=== PATIENT | female | born 1995 | race Caucasian/White ===

== ENCOUNTER 2019-06-27 11:45 | Emergency (ER) | payer BC ==
[~2019-06-27] VITALS: Ht 160 cm; Wt 83.9 kg
[2019-06-27 12:04] VITALS: Ht 160 cm; Wt 83.9 kg
[2019-06-27 12:57] LABS: CALCIUM 8.7 mg/dL (8.5-10.1); CARBON DIOXIDE 22.1 mmol/L (21-32); CHLORIDE SERUM 102 mmol/L (98-107); CREATININE SERUM 0.4 mg/dL (0.6-1.0); GFR1 > 60 mL/min; GLUCOSE SERUM 83 mg/dL (74-106); POTASSIUM SERUM 3.2 mmol/L (3.5-5.1); SODIUM SERUM 137 mmol/L (136-145)
[2019-06-27 13:02] LABS: BASOPHIL % 0.3 % (0-2); PLATELET COUNT 169 x10^3mcL (130-400); RED CELL DISTRIBUTION WIDTH 13.7 % (11.5-14.5)
[2019-06-27 13:03] LABS: ALKALINE PHOSPHATASE 56 U/L (46-116); ALT/SGPT 23 U/L (14-59); AMYLASE 26 U/L (25-115); AST/SGOT 18 U/L (15-37); BILIRUBIN TOTAL 0.3 mg/dL (0.20-1.00); LIPASE 73 IU/L (73-393); TOTAL PROTEIN, SERUM 6.8 g/dL (6.4-8.2)
[2019-06-27 13:16] LABS: ALBUMIN 2.9 g/dL (3.4-5.0)
[2019-06-27 13:30] VITALS: BP 110/58
== END 2019-06-27 14:14 | disposition home or self-care (01) ==
LOC: ED 11:45
PROVIDERS: Emergency Medicine
DX: O99.613 Diseases of the digestive system complicating pregnancy, third trimester (principal); A08.4 Viral intestinal infection, unspecified; Z3A.29 29 weeks gestation of pregnancy
CPT/HCPCS: J2405; J7030